=== PATIENT | female | born 1990 | race Caucasian/White ===

== ENCOUNTER 2018-11-02 23:25 | Inpatient (IN) | payer MEDICAID ==
[2018-11-03] MEDS ORDERED: LIDOCAINE 1% (MPF) 30 ML INJ INJ PRN
[2018-11-03] MEDS ORDERED: OXYTOCIN 30 UNITS/LR 500 ML IV SCH ×2
[2018-11-03] MEDS ORDERED: IBUPROFEN 600 MG TAB PO PRN
--- NOTE | 2018-11-03 00:21 | HP ---
Date/Time of Note Date/Time of Note DATE: 11/03/18 TIME: 00:17 OB - History Hx of Present Free Text/Dictation 28y.o at 37w in active labor with intact membrane Initial VE 8/100/0with bulging bag admitted for expectant management. No record is available. Chief Complaint: in laboor Estimated Due Date: Nov 23, 2018 : 3 Para: 2 Spontaneous : 0 Therapeutic : 0 Care: Other Ultrasounds: Other Obstetrical Complications: None Medical Complications: None Past Family/Social History * Past Medical, Surgical, Family and Obstetric Histories reviewed from chart. Blood Type: Unknown Rubella: unknown RPR/VDRL: Unknown GBS Status: Unknown HBsAG: Unknown OB Admission Exam Physical Exam HEENT: WNL Heart: Rhythm Normal Lungs: Clear, Equal Abdomen: WNL Extremities: Normal Reflexes: Normal Cervical Dilatation: 8cm Effacement: 100% Station: 0 Membranes: Intact Amniotic Fluid: Unevaluable Heart Rate: 140's Contractions on Admission: < 5 Minutes Apart Intensity: Firm OB Assessment/Plan Reason for admission: active labor Other Assessment: IUP 37w Plan: Expectant Management BETY SCOTT MD Nov 03, 2018 00:21
--- NOTE | 2018-11-03 00:28 | LDN ---
Date/Time of Note Date/Time of Note DATE: 11/03/18 TIME: 00:25 Delivery Summary of normal male with thick mec Weeks of Gestation 37w Placenta Delivered: Spontaneously, Intact & Complete Episiotomy: No Perineal laceration: 1 Laceration repair: 0000ch gut Anesthesia type: Local Estimated blood loss: 50 Sponge & Needle done & correct: Yes All needle counts correct: Yes Any foreign bodies felt in the: No Infant Delivery Information Sex Sex: male Apgars 1 Minute: 8 5 Minute: 9 Suctioning Nose & mouth suctioned at jaydn: Yes Delee suction performed: Yes Umbilical Cord Umbilical cord with: 3 Vessels Cord presentations: no nuchal cord Cord Blood was obtained: Yes Mother & Baby Disposition Disposition Mom & Baby to Maternity; Good: Yes Mom transferred to: Other Baby to NICU: No () BETY SCOTT MD Nov 03, 2018 00:28
[2018-11-03 02:30] VITALS: BP 123/79; PULSE 61; RESP 18
[2018-11-03] MEDS ORDERED: METHYLERGONOVINE 0.2 MG INJ IM PRN ×2 (03:00)
[2018-11-03] MEDS ORDERED: OXYCODONE/ASPIRIN (4.88/325) TAB PO PRN ×2 (03:00)
[2018-11-03] MEDS ORDERED: CARBOPROST 250 MCG INJ IM PRN ×2 (03:00)
[2018-11-03] MEDS ORDERED: MISOPROSTOL 200 MCG TAB PR PRN ×2 (03:00)
[2018-11-03] MEDS ORDERED: ZOLPIDEM 5 MG TAB PO PRN (03:00)
[2018-11-03] MEDS ORDERED: OXYTOCIN 30 UNITS/LR 500 ML IV PRN ×2 (03:00)
[2018-11-03] MEDS ORDERED: LANOLIN HPA 1 PKT TOP PRN (03:00)
[2018-11-03] MEDS ORDERED: WITCH HAZEL/GLYCERIN PAD PR PRN (03:00)
[2018-11-03] MEDS ORDERED: BENZOCAINE 20% 56 ML SPRAY TOP PRN (03:00)
[2018-11-03 05:00] VITALS: BP 128/77; PULSE 71; RESP 18
[2018-11-03] MEDS: IBUPROFEN 600 MG TAB PO SCH ×4 (06:07→23:40)
[2018-11-03] MEDS: SENNA/DOCUSATE NA (8.6MG/50MG) TAB PO SCH ×2 (10:42→20:25)
[2018-11-03 12:00] VITALS: BP 120/72; PULSE 89; RESP 18
--- NOTE | 2018-11-03 12:42 | QN ---
Documentation Comment no c/o vss afebrile fundus firm lochia min calf neg for tenderness A stale S/P #1 P d/s home in am BETY SCOTT MD Nov 03, 2018 12:42
[2018-11-03 15:37] VITALS: BP 130/60; PULSE 70; RESP 18
[2018-11-03 19:30] VITALS: BP 115/74; PULSE 63; RESP 19
[2018-11-04 04:00] VITALS: BP 113/66; PULSE 72; RESP 18
[2018-11-04] MEDS: IBUPROFEN 600 MG TAB PO SCH ×3 (05:36→17:47)
[2018-11-04 08:00] VITALS: BP 117/78; PULSE 73; RESP 18
[2018-11-04] MEDS ORDERED: URSODIOL 300 MG CAP PO ONE (08:00)
[2018-11-04] MEDS ORDERED: hydrOXYzine HCL 10 MG TAB PO ONE (08:00)
--- NOTE | 2018-11-04 08:26 | PN ---
Date/Time of Note Date/Time of Note DATE: 11/04/18 TIME: 08:24 OB Subjective Subjective Subjective PPD# 1 Patient is doing well. She denies nausea, vomiting, shortness of breath, chest pain, headache. She has been ambulating without difficulty, tolerating regular diet. Pain is well controlled on current medications OB Objective Objective Objective Vital Signs Date Temp Pulse Resp B/P (MAP) Pulse Ox O2 O2 Flow FiO2 Time Delivery Rate 11/04/18 97.8 72 18 113/66 Room Air 04:00 (82) General: AAO X 3, comfortable, NAD, appropriate mood and affect. ABD: +BS. Soft, non-tender. Uterus 2 cm below umbilicus Flank: No CVA tenderness (B/L) LE: Mild edema. No clubbing, cyanosis, thigh or calf tenderness (B/L). Homans 'sign is negative Laboratory Tests Test 11/02/18 23:45 11/02/18 23:56 11/03/18 06:28 Urine Opiates Screen Negative Urine Barbiturates Negative Urine Amphetamines Screen Negative Urine Benzodiazepines Negative Screen Urine Cocaine Screen Negative Urine Cannabinoids Negative White Blood Count 14.4 10^3/ul Red Blood Count 4.62 10^6/ul Hemoglobin 12.4 g/dl Hematocrit 38.8 % Mean Corpuscular Volume 84.0 fl Mean Corpuscular Hemoglobin 26.8 pg Mean Corpuscular 32.0 g/dl Hemoglobin Concent Red Cell Distribution Width 18.4 % Platelet Count 213 10^3/UL Mean Platelet Volume 12.8 fl Immature Granulocytes % 1.200 % Neutrophils % 54.0 % Lymphocytes % 39.3 % Monocytes % 4.1 % Eosinophils % 0.8 % Basophils % 0.6 % Nucleated Red Blood Cells % 0.3 /100WBC Immature Granulocytes # 0.180 10^3/ul Neutrophils # 7.8 10^3/ul Lymphocytes # 5.7 10^3/ul Monocytes # 0.6 10^3/ul Eosinophils # 0.1 10^3/ul Basophils # 0.1 10^3/ul Nucleated Red Blood Cells # 0.1 10^3/ul Prothrombin Time 11.6 Sec Prothrombin Time Ratio 0.9 INR International 0.84 Normalized Ratio Activated 31.5 Sec Partial Thromboplast Time Rapid Plasma Reagin NONREACTIVE Hepatitis B Surface Antigen NEGATIVE Lab Scanned Report REFER[facility] LAB [id number] OB Assessment/Plan Other plan: 28 years old s/p normal vaginal delivery at 37 weeks. PPD#1 - AF, VSS - Baby is doing well, at bed side. She is bonding well - Contraception methods with R/B/A/FR discussed - Continue care - Discharge home tomorrow - Rx and instruction given - Follow up in 2 and 6 weeks at clinic ROBERTA RATLIFF Nov 04, 2018 08:26
[2018-11-04] MEDS: SENNA/DOCUSATE NA (8.6MG/50MG) TAB PO SCH (08:27)
--- NOTE | 2018-11-04 08:28 | DS ---
Date/Time of Note Date/Time of Note DATE: 11/04/18 TIME: 08:26 Obstetrical Discharge Record Final Diagnosis Final Diagnosis: Term delivered Other Final Diagnosis 28 years old s/p normal vaginal delivery at 37 weeks. PPD#1. She is ambulating and tolerating regular diet. She is voiding without difficulty. She is complaining of generalized itching since 1 week before delivery. CMP ordered. Active gel 300 mg twice daily and hydroxyzine 10 mg twice daily ordered. - AF, VSS - Baby is doing well, at bed side. She is bonding well - Contraception methods with R/B/A/FR discussed - Continue care - Discharge home tomorrow - Rx and instruction given - Follow up in 2 and 6 weeks at clinic Vaginal Delivery Obstetrical Delivery: Spontaneous Condition on Discharge Physical Assessment Voiding: Yes Bowel Movement: Yes Breast: Soft, non-tender Fundus: Firm Calf Tenderness: No Patient Condition: Stable ROBERTA RATLIFF Nov 04, 2018 08:28
[2018-11-04 15:50] VITALS: BP 115/69; PULSE 70; RESP 20
[2018-11-05] MEDS ORDERED: DIPHTH/TET/ACEL PERTUSS (ADULT) 0.5 ML VIAL IM* ONE (09:00)
== END 2018-11-04 18:14 | disposition home or self-care (01) | DRG 807 ==
LOC: L-D 23:25 → OBT 23:25 → L-D 23:42 → PP1 11-03 02:16
PROVIDERS: ADMIT Obstetrics & Gynecology; ATTEND Obstetrics & Gynecology
PROC: 10E0XZZ Delivery of Products of Conception, External Approach (ICD-10-PCS; principal; 2018-11-03)
PROC: 0HQ9XZZ Repair Perineum Skin, External Approach (ICD-10-PCS; 2018-11-03)
DX: O77.0 Labor and delivery complicated by meconium in amniotic fluid (principal); Z37.0 Single live birth; O70.9 Perineal laceration during delivery, unspecified; O75.89 Other specified complications of labor and delivery; L29.9 Pruritus, unspecified; Z3A.37 37 weeks gestation of pregnancy
CPT/HCPCS: 80053; 80307; 85025; 85610; 85730; 86592; 86850; 86900; 86901; 87340; 90686; 99464; G0463; J2590